=== PATIENT | male | born 1975 | race Caucasian/White ===

== ENCOUNTER 2022-06-25 08:38 | Emergency (ER) | payer BC ==
[2022-06-25 10:45] LABS: CORONAVIRUS COVID-19 NAA POSITIVE (NEGATIVE)
[2022-06-25] MEDS ORDERED: Ibuprofen 600 MG Tab PO ONE (10:49)
== END 2022-06-25 12:07 | disposition home or self-care (01) ==
LOC: JD.ED 08:38
DX: U07.1 COVID-19 (principal)
CPT/HCPCS: 0241U; 71045; 99283; A9270